=== PATIENT | male | born 1960 | race Caucasian/White ===

== ENCOUNTER 2017-04-08 09:40 | Day surgery (SDC) | payer OTHER ==
--- NOTE | 2017-04-07 12:33 | HISTORY AND PHYSICAL E ---
History and Physical NAME: JESSE MENDOZA : 1960 AGE: 56Y ADMITTED: 04/08/2017 ROOM: REASON FOR ADMISSION: The patient is to be admitted for upper endoscopy. HISTORY OF PRESENT ILLNESS: The patient was seen in 2011 where he did have colon and polypectomy. The colon shows ascending colon polyps. The patient was seen in 2013. He did have history of adenoma polyps resected 2011. He did have sessile adenoma resected. He did have hyperplastic sigmoid polyp. At this time, the patient complained of heartburn. He does have a history of anemia, diverticulosis. Upper scope for anemia. No ulcers, no bleeding. He does have gastritis, esophagitis, duodenal polyp. The patient did have colonoscopy in 2015 shows the following: Upper scope shows erosions in the antrum, no definite ulcers, no bleeding. His iron is normal. Ferritin is normal. His white count was 3, hemoglobin 11, hematocrit 34. H. pylori serology shows as follows: Positive IgG, positive IgM. Celiac disease was negative. REVIEW OF SYSTEMS: CARDIAC: Hypertension. GASTROINTESTINAL: Abdominal pain, reflux. SOCIAL HISTORY: The patient smokes one-half pack daily, drinks beer. PAST SURGICAL HISTORY: 1. Left ankle. 2. Right hand, accident. Again, the patient presented at that time regarding upper scope. The patient's stools are positive for H. pylori. Question H. pylori, mild ulcers, no malignancy. The patient needs upper scope and possibility colonoscope. Ultrasound shows small amount of sludge. Patient started on Protonix. He states it is for hypertension. CONCLUSIONS: 1. Gastroesophageal reflux. 2. Abdominal pain. 3. Question H. pylori. PLAN: Upper scope scheduled for 04/14/2017. DICTATING PHYSICIAN: ANGEL OREILLY M.D. [id number] PHY#: [id number] ID: [id number] JOB#: [id number] ACCT: [id number] cc:ANGEL OREILYL M.D. >
[2017-04-08] MEDS ORDERED: FLUMAZENIL INJ 0.5 MG/5 ML VIAL IV ONE (09:53)
[2017-04-08] MEDS ORDERED: GLYCOPYRROLATE INJ 0.4 MG/2 ML VIAL ONE (09:53)
[2017-04-08] MEDS ORDERED: NALOXONE HCL INJ/PF 0.4 MG/1 ML SDV ONE (09:53)
[2017-04-08] MEDS ORDERED: ONDANSETRON HCL INJ/PF 4 MG/2 ML SDV ONE (09:53)
[2017-04-08] MEDS ORDERED: EPINEPHRINE INJ 1 MG/10 ML DISP.SYRIN ONE (09:54)
[2017-04-08] MEDS: MIDAZOLAM 2 MG/2 ML INJ ONE ×2 (10:30→10:34)
[2017-04-08] MEDS: FENTANYL CITRATE INJ/PF 100 MCG/2 ML AMPUL ONE ×3 (10:32→10:38)
[2017-04-08 12:04] LABS: ABSOLUTE EOSINOPHILS # (AUTO) 0.1 10^3/uL (0.0-0.6); ABSOLUTE LYMPHOCYTES (AUTO) 1.4 10^3/uL (0.5-4.7); ABSOLUTE MONOCYTES (AUTO) 0.4 10^3/uL (0.1-1.4); ABSOLUTE NEUT (AUTO) 2.5 10^3/uL (1.7-8.2); BASOPHILS % (AUTO) 1.1 % (0-2); EOSINOPHILS % (AUTO) 2.1 % (0-6); HEMATOCRIT 34.7 % (37.9-51.0); HEMOGLOBIN 11.9 g/dL (13.5-17.0); LYMPHOCYTES % (AUTO) 31.2 % (13-45); MEAN CORPUSCULAR HEMOGLOBIN 30.1 pg (27.0-33.4); MEAN CORPUSCULAR HGB CONC 34.2 g/dL (32.0-36.0); MEAN CORPUSCULAR VOLUME 88 fl (80-97); MONOCYTES % (AUTO) 9.1 % (3-13); RED BLOOD COUNT 3.94 10^6/uL (4.35-5.55); RED CELL DISTRIBUTION WIDTH 12.8 % (11.5-14.0); SEGMENTED NEUTROPHILS % (AUTO) 56.5 % (42-78); WHITE BLOOD COUNT 4.4 10^3/uL (4.0-10.5)
[2017-04-08 12:09] VITALS: BP 141/94
[2017-04-08 12:19] LABS: IRON 68.7 ug/dL (49-181)
[2017-04-08 12:50] LABS: CARCINOEMBRYONIC ANTIGEN 6.9 ng/mL (<3.0)
--- NOTE | 2017-04-08 16:45 | OPERATIVE REPORT E ---
Operative Report NAME: JESSE MENDOZA : 1960 AGE: 56Y DATE OF SURGERY: 04/08/2017 ROOM: PREOPERATIVE DIAGNOSES: 1. Reflux. 2. Abdominal pain. 3. History of H. pylori. 4. Patient is on aspirin and Celebrex. POSTOPERATIVE DIAGNOSES: 1. Reflux. 2. Abdominal pain. 3. History of H. pylori. 4. Patient is on aspirin and Celebrex. PROCEDURE: 1. Esophagoscopy. 2. Gastroscopy. 3. Duodenoscopy. SURGEON: ANGEL OREILLY M.D. TISSUE REMOVED OR ALTERED: Gastric biopsy (H. pylori). ANESTHESIA: 1. Versed 4 mg. 2. Fentanyl 150 mcg. DESCRIPTION OF PROCEDURE: After adequate sedation, baby scope passed under guided vision. No difficulties. ESOPHAGOSCOPY: GE junction 35 cm level. No stricture. Mild esophagitis. GASTROSCOPY: Mild gastritis. Few erosions. Biopsy obtained (H. pylori). DUODENOSCOPY: The duodenal mucosa is edematous with mild duodenitis. There was one area it looks like benign lipoma. Descending duodenum normal. CONCLUSION: 1. No ulcers. 2. No cancer. 3. Edematous duodenal bulb with lipoma. 4. Benign polyp. 5. Gastritis. 6. Esophagitis. PLAN: 1. Awaiting biopsy results. 2. Baseline CBC. DICTATING PHYSICIAN: ANGEL OREILLY M.D. [id number] PHY#: [id number] ID: [id number] JOB#: [id number] ACCT: [id number] cc:MD ANGEL HERRERA M.D. >
--- NOTE | 2017-04-08 16:47 | DISCHARGE SUMMARY E ---
Discharge Summary NAME: JESSE ROTHMAN : 1960 AGE: 56Y ADMITTED: 04/08/2017 DISCHARGED: 04/08/2017 HISTORY OF PRESENT ILLNESS: Mr. Rothman is a 56-year-old male known to have gastritis. He presents with abdominal pain, history of H. pylori, history of benign duodenal polyp. Upper endoscopy today shows no malignancy. No ulcers. Mild esophagitis. Mild gastritis. DISCHARGE PLAN: Awaiting biopsy results. Baseline CBC. Will obtain CEA. Consider colonoscopy. History of adenoma polyps. Hold Celebrex and aspirin for 3 days. Check iron, B12 and CEA. Patient to see us in the office in the next few days. PROCEDURE: EGD with biopsy. DICTATING PHYSICIAN: ANGEL OREILLY M.D. [id number] PHY#: [id number] ID: [id number] JOB#: [id number] ACCT: [id number] cc:ANGEL OREILLY M.D. >
--- NOTE | 2017-04-08 16:49 | HISTORY AND PHYSICAL E ---
History and Physical NAME: JESSE MENDOZA : 1960 AGE: 56Y ADMITTED: 04/08/2017 ROOM: CHIEF COMPLAINT: Patient presented with reflux. Patient for upper scope. The patient did have ultrasound shows sludge. He does have history of gastritis, H. pylori. The patient presented at this time regarding upper endoscopy. PAST SURGICAL HISTORY: Left ankle. ALLERGIES: No known allergies. SOCIAL HISTORY: Smokes, drinks beer. REVIEW OF SYSTEMS: CARDIAC: Hypertension. ENDOCRINE: Negative. FAMILY HISTORY: Father had heart disease. Mom is alive. PHYSICAL EXAMINATION: GENERAL: Pleasant, alert and oriented. VITAL SIGNS: Blood pressure 140/90, pulse 80, respirations 20, temp is 98. HEAD, EYES, EARS, NOSE AND THROAT: Normal. ABDOMEN: Soft. NEUROLOGICAL: Exam negative. Colonoscopy done on 08/31/2016 showing hyperplastic polyp. At this time, patient for upper endoscopy regarding reflux. CONCLUSIONS: Reflux. PLAN: Upper scope. The patient has had colonoscopies and polypectomies in the past, now he is being evaluated regarding reflux. MEDICATIONS: 1. Omeprazole. 2. Diovan for hypertension. 3. Micardis. DICTATING PHYSICIAN: ANGEL OREILLY M.D. [id number] [id number] PHY#: [id number] ID: [id number] JOB#: [id number] ACCT: [id number] cc:ANGEL OREILLY M.D. >
== END 2017-04-08 12:00 | disposition home or self-care (01) ==
LOC: END 09:40
PROVIDERS: ATTEND Specialist
PROC: 0DB68ZX Excision of Stomach, Via Natural or Artificial Opening Endoscopic, Diagnostic (ICD-10-PCS; principal; 2017-04-08 10:00)
DX: K21.0 Gastro-esophageal reflux disease with esophagitis (principal); D17.5 Benign lipomatous neoplasm of intra-abdominal organs; K29.80 Duodenitis without bleeding; K29.50 Unspecified chronic gastritis without bleeding; B96.81 Helicobacter pylori [H. pylori] as the cause of diseases classified elsewhere; I10 Essential (primary) hypertension; Z79.4 Long term (current) use of insulin; F17.210 Nicotine dependence, cigarettes, uncomplicated
CPT/HCPCS: 43239; 36415; 82607; 82378; 82728; 83540; 85025; 88342 ×2; 88305 ×2; J2250; J3010; J2405; J0171; J2310; J3490

== ENCOUNTER → 2017-04-15 | Outpatient (CLI) | payer OTHER ==
--- NOTE | 2017-04-15 11:29 | RADIOLOGY REPORT (SQ) ---
EXAM DESCRIPTION: CHEST PA/LATERAL COMPLETED DATE/TIME: 04/15/2017 9:28 am REASON FOR STUDY: ELEVATED CARCINOEMBRYONIC ANTIGEN CEA,SIMPLE CHR BRONCHITIS COMPARISON: None. EXAM PARAMETERS: NUMBER OF VIEWS: two views TECHNIQUE: Digital Frontal and Lateral radiographic views of the chest acquired. RADIATION DOSE: NA LIMITATIONS: none FINDINGS: LUNGS AND PLEURA: No opacities, masses or pneumothorax. No pleural effusion. MEDIASTINUM AND HILAR STRUCTURES: No masses or contour abnormalities. HEART AND VASCULAR STRUCTURES: Heart normal size. No evidence for failure. BONES: No acute findings. HARDWARE: Sternotomy wires and surgical clips. OTHER: No other significant finding. IMPRESSION: NO SIGNIFICANT RADIOGRAPHIC FINDING IN THE CHEST. TECHNICAL DOCUMENTATION: JOB ID: [id number] [employer]- All Rights Reserved
== END ==
LOC: OD 09:09
PROVIDERS: ATTEND Specialist
DX: J41.0 Simple chronic bronchitis (principal); R97.0 Elevated carcinoembryonic antigen [CEA]
CPT/HCPCS: 71020

== ENCOUNTER → 2017-04-15 | Outpatient (CLI) | payer OTHER | LOC: OD 08:52 | PROVIDERS: ATTEND Specialist | DX: J41.0 Simple chronic bronchitis (principal); R97.0 Elevated carcinoembryonic antigen [CEA] | CPT/HCPCS: 36415; 82378; 86301 ==

== ENCOUNTER 2019-08-29 11:47 | Day surgery (SDC) | payer OTHER ==
[~2019-08-29 11:47] MED LIST: CHONDR SU A NA/HYALUR INTRAOC KIT (SURGICARE) ONE; EPINEPHRINE INJ/PF 1 MG/1 ML AMPULE ONE; FENTANYL CITRATE INJ/PF 100 MCG/2 ML AMPUL ONE; KETOROLAC TROMETHAMINE 0.45% 4 DROP/0.4 ML DROPERETTE OS PRN; LIDOCAINE 1% INJ-PF (10 MG/ML) 30 ML SDV ONE; MIDAZOLAM 2 MG/2 ML INJ ONE; ONDANSETRON HCL INJ/PF 4 MG/2 ML SDV ONE
[2019-08-29] MEDS: TROPICAMIDE 1% OPH SOLN 15 ML OS PRN ×4 (11:56→12:18)
[2019-08-29] MEDS: CYCLOPENTOLATE 0.2%/PHENYLEPHRINE 1% OPH SOLN 2 ML OS PRN ×3 (11:56→12:19)
[2019-08-29] MEDS: BESIFLOXACIN HCL 0.6% OPH SUSP 5 ML BOTTLE OS PRN ×4 (11:56→12:50)
[2019-08-29] MEDS: TETRACAINE HCL 0.5% OPH SOLN 4 ML OS PRN ×2 (12:19→12:35)
[2019-08-29] MEDS: DORZOLAMIDE HCL 2%/TIMOLOL MALEAT 0.5% OPH SOLN 10 ML OS PRN ×2 (12:50)
[2019-08-29] MEDS: TOBRAMYCIN SULFATE/DEXAMETH OPH OINTMENT 3.5 GM ONE ×2 (12:50)
== END 2019-08-29 13:35 | disposition home or self-care (01) ==
LOC: SC 11:47
PROVIDERS: ATTEND Ophthalmology
DX: H25.12 Age-related nuclear cataract, left eye (principal); I25.10 Atherosclerotic heart disease of native coronary artery without angina pectoris; I10 Essential (primary) hypertension; E78.00 Pure hypercholesterolemia, unspecified; I25.2 Old myocardial infarction; Z79.82 Long term (current) use of aspirin; Z79.899 Other long term (current) drug therapy; Z87.891 Personal history of nicotine dependence; Z88.5 Allergy status to narcotic agent
CPT/HCPCS: 66984; V2632; J2250; J3490 ×4; J0171; J3010; J2405; 142

== ENCOUNTER 2019-09-10 10:46 | Day surgery (SDC) | payer OTHER ==
[~2019-09-10 10:46] MED LIST changes: -FENTANYL CITRATE INJ/PF 100 MCG/2 ML AMPUL ONE; +KETOROLAC TROMETHAMINE 0.45% 4 DROP/0.4 ML DROPERETTE OD PRN; -KETOROLAC TROMETHAMINE 0.45% 4 DROP/0.4 ML DROPERETTE OS PRN; -LIDOCAINE 1% INJ-PF (10 MG/ML) 30 ML SDV ONE; +LIDOCAINE 1%/PHENYLEPHRINE 1.5% 1 ML VIAL ONE; -MIDAZOLAM 2 MG/2 ML INJ ONE; -ONDANSETRON HCL INJ/PF 4 MG/2 ML SDV ONE
[2019-09-10] MEDS: BESIFLOXACIN HCL 0.6% OPH SUSP 5 ML BOTTLE OD PRN ×4 (10:51→11:34)
[2019-09-10] MEDS: CYCLOPENTOLATE 0.2%/PHENYLEPHRINE 1% OPH SOLN 2 ML OD PRN ×3 (10:51→11:11)
[2019-09-10] MEDS: TROPICAMIDE 1% OPH SOLN 15 ML OD PRN ×3 (10:51→11:11)
[2019-09-10] MEDS: TETRACAINE HCL 0.5% OPH SOLN 4 ML OD PRN ×3 (10:51→11:18)
[2019-09-10] MEDS ORDERED: MIDAZOLAM 2 MG/2 ML INJ ONE (11:06)
[2019-09-10] MEDS ORDERED: FENTANYL CITRATE INJ/PF 100 MCG/2 ML AMPUL ONE (11:06)
[2019-09-10] MEDS: DORZOLAMIDE HCL 2%/TIMOLOL MALEAT 0.5% OPH SOLN 10 ML OD PRN ×2 (11:34)
== END 2019-09-10 12:17 | disposition home or self-care (01) ==
LOC: SC 10:46
PROVIDERS: ATTEND Ophthalmology
DX: H25.11 Age-related nuclear cataract, right eye (principal); Z98.42 Cataract extraction status, left eye; I10 Essential (primary) hypertension; E78.00 Pure hypercholesterolemia, unspecified; I25.10 Atherosclerotic heart disease of native coronary artery without angina pectoris; I25.2 Old myocardial infarction; Z79.899 Other long term (current) drug therapy; Z88.8 Allergy status to other drugs, medicaments and biological substances; F17.210 Nicotine dependence, cigarettes, uncomplicated; Z79.82 Long term (current) use of aspirin
CPT/HCPCS: 00142; 66984; V2632; J2250; J3490 ×2; J0171; J3010; J2370; 142